=== PATIENT | male | born 1990 | race African-American/Black ===

== ENCOUNTER 2017-08-07 07:43 | Emergency (ER) | payer MEDICAID ==
[~2017-08-07] VITALS: Ht 177.8 cm; Wt 72.6 kg
[2017-08-07] MEDS ORDERED: Terbutaline 1mg/ml Inj SUBQ ONE (07:45)
[2017-08-07] MEDS ORDERED: Solu-MEDROL 125mg Inj IVP ONE (07:45)
[2017-08-07] MEDS ORDERED: Terbutaline 1mg/ml Inj ONE (07:46)
[2017-08-07] MEDS ORDERED: Solu-MEDROL 125mg Inj ONE (07:49)
[2017-08-07] MEDS ORDERED: LORazepam Inj 2mg/ml 1ml ONE (07:54)
[2017-08-07] MEDS: Ipratropium 0.02% Inh Soln 2.5ml UD HHN SCH ×3 (07:55→08:16)
[2017-08-07] MEDS: Albuterol ud Inhalation HHN SCH ×3 (07:55→08:15)
[2017-08-07] MEDS ORDERED: LORazepam Inj 2mg/ml 1ml IV ONE (08:00)
[2017-08-07 09:12] VITALS: BP 128/82
[2017-08-07] MEDS ORDERED: ALPRAZOLAM0.25 MG ORAL (09:40)
[2017-08-07] MEDS ORDERED: ALBUTEROL SULF8.5 GM INH (09:40)
[2017-08-07 09:48] VITALS: BP 128/82
--- NOTE | 2017-08-07 09:56 | Emergency Room Report ---
History of Present Illness General Chief Complaint: Asthma Source: Patient, Friend Present Illness HPI 26-year-old male presents ED for evaluation. Patient brought in by friends stating that he is short of breath and cannot breathe. Started this morning. Patient does have history of asthma and friend states his inhaler was empty. Patient states he cannot breathe. Is crying, appears very anxious. Friend states also that patient does have anxiety is currently not on any medication. No alcohol or drug use. Denies any chest pain. No other aggravating or leading factors. Denies any other associated symptoms Allergies: Coded Allergies: No Known Allergies (Unverified , 08/07/17) Patient History Past Medical History: asthma Past Surgical History: none Pertinent Family History: none Social History: Denies: smoking, alcohol use, drug use Immunizations: UTD Reviewed Nursing Documentation: PMH: Agreed, PSxH: Agreed Nursing Documentation-PMH Past Medical History: No History, Except For Hx Asthma: Yes Review of Systems All Other Systems: limited Physical Exam Vital Signs Date Time Temp Pulse Resp B/P (MAP) Pulse Ox O2 Delivery O2 Flow Rate FiO2 08/07/17 07:44 97.5 124 24 151/101 98 Simple Mask 6.0 08/07/17 08:07 100 Sp02 EP Interpretation: reviewed, normal General Appearance: alert, moderate distress Head: normocephalic Eyes: bilateral eye normal inspection, bilateral eye PERRL ENT: normal ENT inspection Neck: normal inspection Respiratory: wheezing Cardiovascular #1: regular rate, rhythm, no edema Gastrointestinal: normal inspection Rectal: deferred Genitourinary: no CVA tenderness Musculoskeletal: normal inspection Neurologic: alert, oriented x3, other - anxious Psychiatric: no suicidal/homicidal ideation, no delusions, anxious Skin: normal inspection Lymphatic: normal inspection Medical Decision Making Diagnostic Impression: Primary Impression: Anxiety Additional Impression: Asthma Qualified Codes: J45.41 - Moderate persistent asthma with (acute) exacerbation ER Course Hospital Course 26-year-old male presents with shortness of breath, anxious Differential diagnoses include: URI, bronchitis, asthma/COPD, pneumonia Clinical course Patient placed on stretcher. After initial history, physical exam reveals a young male in severe distress. Mild wheezing noted on exam. Patient given terbutaline. Given Solu-Medrol. Given nebulizer treatment x3. Patient states he still can't breathe. O2 saturations 100%. Patient has good air movement. Patient points to his head. Friend states the patient does have severe anxiety and had multiple panic attacks in the past patient given Ativan. Initially ordered labs and EKG but deferred Patient allowed to rest. Feeling better. Wants to be discharged. I will prescribe an inhaler. Patient states he does not take medication for anxiety but friends state that he has multiple panic attacks every week. I will prescribe low-dose Xanax to recommend followup with PMD Diagnosis - anxiety, asthma Stable and discharged home with prescriptions for xanax, albuterol. Instructed to followup with PMD. Return to ED if symptoms recur or worsen Chest X-Ray Diagnostic Results Chest X-Ray Diagnostic Results : Chest X-Ray Ordered: Yes # of Views/Limited/Complete: 1 View Indication: Shortness of Breath EP Interpretation: Yes Interpretation: no consolidation, no effusion, no pneumothorax, no acute cardiopulmonary disease Impression: No acute disease Electronically Signed by: Electronically signed by Lewis Ku MD Last Vital Signs Date Time Temp Pulse Resp B/P (MAP) Pulse Ox O2 Delivery O2 Flow Rate FiO2 08/07/17 09:48 97.9 98 22 128/82 100 Non-Rebreather 6.0 100 Status: improved Disposition: HOME, SELF-CARE Condition: Stable Scripts Alprazolam* (XANAX*) 0.25 Mg Tablet 0.25 MG ORAL TID Y for For Anxiety, #20 TAB Prov: LEWIS KU M.D. 08/07/17 Albuterol Sulfate* (ALBUTEROL SULFATE MDI*) 8.5 Gm Hfa.aer.ad 2 PUFF INH Q4H Y for cough/wheezing, #1 EA 0 Refills Prov: LEWIS KU M.D. 08/07/17 Patient Instructions: Asthma, Adult LEWIS KU M.D. Aug 07, 2017 09:56
--- NOTE | 2017-08-08 10:29 | Diagnostic Imaging Report ---
Indication: Reason For Exam: SOB Technique: One view of the chest Comparison: none Findings: There is mild thoracic scoliotic deformity. Heart size is upper limits normal. Lungs and pleural spaces are clear. Impression: No acute process
== END 2017-08-07 09:45 | disposition home or self-care (01) ==
LOC: EMR 09:16
DX: F41.9 Anxiety disorder, unspecified (principal); J45.909 Unspecified asthma, uncomplicated
CPT/HCPCS: 71010; 94664; 96361; 96372; 96374; 96375; 99284; J2930